=== PATIENT | male | born 1950 | race Caucasian/White ===

== ENCOUNTER 2017-05-20 19:09 | Inpatient (IN) ==
[2017-05-20] MEDS ORDERED: Ipratropium/Albuterol Neb 3 ML IH ONE (19:20)
[2017-05-20] MEDS ORDERED: methylPREDNISolone 125 MG/2 ML VIAL IVP ONE (19:21)
[2017-05-20 19:43] LABS: Basophils % 0.3 %; Eosinophils % 0.1 %; Hematocrit 46.2 % (37.5-50.1); Hemoglobin 14.7 g/dL (12.9-16.9); Immature Granulocytes % 0.5 % (0-4); Lymphocytes # 0.9 K/mcL (0.6-4.6); Lymphocytes % 8.4 %; Mean Corpuscular HGB Conc 31.8 g/dL (31.6-35.5); Mean Corpuscular Hemoglobin 27.1 pg (28.0-33.3); Mean Corpuscular Volume 85.2 fL (83.0-100.0); Mean Platelet Volume 9.3 fL (9.4-12.4); Monocytes # 0.7 K/mcL (0.0-1.3); Monocytes % 6.1 %; Neutrophils # 9.1 K/mcL (1.6-8.9); Platelet Count 216 K/mcL (140-400); Red Blood Count 5.42 M/mcL (4.19-5.50); Segmented Neutrophils % 84.6 %
[2017-05-20 19:58] LABS: Alanine Aminotransferase 10 Units/L (0-55); Albumin 3.1 g/dL (3.5-5.0); Albumin/Globulin Ratio 0.8 (1.1-2.2); Alkaline Phosphatase 75 Units/L (38-126); Aspartate Amino Transferase 13 Units/L (5-34); BUN/Creatinine Ratio 14 (6-26); Bilirubin,Direct 0.4 mg/dL (0.0-0.5); Bilirubin,Indirect 0.4 mg/dL (0.0-1.2); Bilirubin,Total 0.8 mg/dL (0.2-1.2); Blood Urea Nitrogen 14 mg/dL (8-26); Calcium 8.9 mg/dL (8.6-10.8); Carbon Dioxide 24 mEq/L (19-29); Chloride 106 mEq/L (98-109); Globulin 3.7 g/dL (2.4-3.5); Glucose 128 mg/dL (70-99); Magnesium 1.6 mg/dL (1.6-2.6); Osmolality,Calculated 292 (280-300); Phosphorous 2.4 mg/dL (2.3-4.7); Sodium 140 mEq/L (136-145); Total Protein 6.8 g/dL (6.0-8.3); eGFR For African Americans > 60 (> 60); eGFR For Non-African Americans > 60 (> 60)
[2017-05-20] MEDS ORDERED: Aspirin 325 MG TABLET PO ONE (20:10)
[2017-05-20 20:19] LABS: INR 1.1; Prothrombin Time 12.1 Seconds (9.4-12.1)
[2017-05-20 20:22] LABS: Activated Partial Thrombo Time 29.1 Seconds (26.0-36.0)
[2017-05-20 20:41] LABS: Bilirubin,Urine Small (Negative); Blood,Urine Trace (Negative); Clarity,Urine Clear (Clear); Color,Urine Dark Yellow (Yellow); Glucose,Urine (UA) Normal (Normal); Ketones,Urine Trace mg/dL (Negative); Leukocyte Esterase,Urine Negative (Negative); Nitrite,Urine Negative (Negative); PH,Urine 5.5 pH Units (5.0-8.0); Protein,Urine 30 mg/dL (Neg-Trace); Urobilinogen,Urine Normal (Normal)
[2017-05-20 20:42] LABS: Bacteria,Urine None Seen per hpf (None-Few); Hyaline Casts,Urine Few per lpf (None-Few); Squamous Epithelial Cell,Urine Many per lpf (None-Few)
[2017-05-20] MEDS ORDERED: Vancomycin 1,500 MG in D5% in Water 250 ML IVPB ONE (20:49)
[2017-05-20] MEDS ORDERED: Piperacillin/Tazobactam 3.375 GM in D5% in Water (Mini-Bag+) 100 ML IVPB ONE (20:49)
[2017-05-20] MEDS: 0.9 % Sodium Chloride 1,000 ML IVC SCH ×2 (21:06→23:09)
--- NOTE | 2017-05-20 21:20 | Emergency Department Note ---
Disposition Clinical Impression: Tachycardia, COPD exacerbation Fever Qualifiers: Fever type: unspecified Qualified Code(s): R50.9 - Fever, unspecified Sepsis Qualifiers: Sepsis type: sepsis due to unspecified organism Qualified Code(s): A41.9 - Sepsis, unspecified organism Dyspnea Qualifiers: Dyspnea type: unspecified Qualified Code(s): R06.00 - Dyspnea, unspecified Disposition: Admitted As Inpatient Condition: Fair Referrals: Cyrus Woo DO [Primary Care Provider] - Forms: ED Satisfaction Letter Time of Disposition: 21:25 SOB HPI - General Chief Complaint: ED Shortness of Breath/Dyspnea Stated Complaint: ERVIN, Fever, BLE swelling Time Seen by Provider: 05/20/17 19:18 Source: patient, family, EMS Mode of arrival: EMS Limitations: no limitations Nursing Notes Reviewed: Yes Vital Signs Reviewed: Yes - History of Present Illness Patient is a 67-year-old male with past medical history of COPD, hypertension, 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 He presents today via EMS due to fever, nausea, vomiting, diarrhea, hypoxia. Daughter is present and states that the patient has been feeling unwell for the past 24 hours. He was febrile at home up to 101 degrees. He has had increased cough as well. He had increased shortness of breath. Usually he wears 4 L nasal cannula oxygen and sats around 91-92%. However, upon arrival, EMS states that the patient was satting in the low 80s. They put him on a nonrebreather mask and he was brought up to 96%. Patient has increased work of breathing on presentation. He denies any chest pain, admits to shortness of breath. Also admits to nausea, vomiting, fevers, diarrhea. Denies any abdominal pain. - Related Data Previous Rx's Medication Instructions Recorded HYDROcodone/Acet 10/325 mg [[place] 1 tab PO Q6HR PRN #10 tab 03/25/16 10-325 mg] Sulfamethoxazole/Trimeth DS 1 each PO BID #20 tablet 04/23/16 [Bactrim DS] cephALEXin [Keflex] 500 mg PO QID #40 capsule 04/23/16 Allergies Allergy/AdvReac Type Severity Reaction Status Date / Time gabapentin Allergy Hives Verified 05/22/16 00:36 All systems ED: reviewed and negative except as stated. Constitutional: Reports: fever Cardiovascular: Denies: chest pain Respiratory: Reports: cough, dyspnea Gastrointestinal: Reports: nausea, vomiting, diarrhea. Denies: abdominal pain Past Medical History - Past Medical History Attestation: Yes The following information was validated with the patient. Source: patient Medical history: Reports: COPD, CVA, hyperlipidemia, hypertension, other Psychiatric history: Reports: anxiety, depression, PTSD - Social History Smoking Status: Former smoker Smokeless Tobacco Status: No Alcohol use: Reports: none Drug use: Reports: none Physical Exam - General Limitations: no limitations General appearance: alert, in distress (Pndh-je-qlctkjrd respiratory) - Head Head exam: atraumatic, normocephalic, normal inspection - Eye Eye exam: Present: normal appearance, PERRL, EOMI - ENT ENT exam: normal exam, normal oropharynx, mucous membranes moist - Neck Neck exam: Present: normal inspection, full ROM, trachea midline - Chest Chest inspection: Present: normal inspection, symmetric chest wall rise - Respiratory Respiratory exam: Present: respiratory distress ([id number]-[id number], on nonrebreather mask, using accessory muscles for work of breathing.), other ( Decreased aeration throughout, no overt wheezes) - Cardiovascular Cardiovascular exam: Present: normal rhythm, tachycardia, normal heart sounds - Abdominal Exam Abdominal exam: Present: soft, Non-Tender. Absent: tenderness, distention, guarding, rebound, rigidity - Extremities Exam Extremities exam: Present: pedal edema (Chronic bilateral lower extremity edema , chronic left lower extremity venous stasis dermatitis) - Neurological Exam Neurological exam: Present: alert, oriented X3 - Psychiatric Psychiatric exam: Present: normal affect, normal mood - Skin Skin exam: Present: warm, dry, intact, normal color Course Course Narrative: Patient was tachycardic in the 120s, febrile on presentation. Satting 96% on nonrebreather. Patient was given duonebs and Solu-Medrol. EKG shows sinus tachycardia with no acute ST changes. White blood cell count around 10 with a left shift. No major electrolyte abnormalities. Elevated troponin 0.09. Aspirin given. UA negative. Chest x-ray negative for any acute cardiopulmonary process. Patient met SIRS/sepsis criteria. He was given 30 mL/ kg bolus of fluids, placed on empiric drink and Zosyn. Blood cultures have been drawn. Patient will be admitted for fever of unknown source, sepsis, elevated troponin level. No current chest pain on exam. Chest X-Ray 05/20/17 19:20 IMPRESSION: Shallow inspiration. No acute process. D/ / Bro Montalvo MD / Bro Montalvo MD Interpreting Provider: Bro Montalvo MD Vital Signs Temperature 102.4 F H 05/20/17 19:11 Pulse Rate 120 05/20/17 19:11 Respiratory Rate 18 05/20/17 19:11 Blood Pressure 135/90 05/20/17 19:11 O2 Sat by Pulse Oximetry 97 05/20/17 19:11 Temperature 102.4 F H 05/20/17 19:11 Pulse Rate 120 05/20/17 19:11 Respiratory Rate 18 05/20/17 19:11 Blood Pressure 135/90 05/20/17 19:11 O2 Sat by Pulse Oximetry 97 05/20/17 19:11 Oxygen Delivery Oxygen Delivery Non Rebreather Mask Shortness of Breath/Dyspnea - [facility] Narrative Medical decision making narrative: Patient was tachycardic in the 120s, febrile on presentation. Tylenol given for fever. Satting 96% on nonrebreather. Patient was given duonebs and Solu- Medrol. EKG shows sinus tachycardia with no acute ST changes. White blood cell count around 10 with a left shift. No major electrolyte abnormalities. Elevated troponin 0.09. Aspirin given. UA negative. Chest x-ray negative for any acute cardiopulmonary process. Patient met SIRS/sepsis criteria. He was given 30 mL/kg bolus of fluids, placed on empiric drink and Zosyn. Blood cultures have been drawn. Patient will be admitted for fever of unknown source , sepsis, elevated troponin level. No current chest pain on exam. - Medical Records Medical records reviewed: Yes I reviewed the patient's medical records. - Lab Data Lab results reviewed: Yes I reviewed the patient's lab results. Result diagrams: 05/20/17 19:20 05/20/17 19:20 Lab Results 05/20/17 05/20/17 05/20/17 Range/Units 19:20 19:20 19:20 WBC 10.8 (4.3-11.1) K/mcL RBC 5.42 (4.19-5.50) M/mcL Hgb 14.7 (12.9-16.9) g/dL Hct 46.2 (37.5-50.1) % MCV 85.2 (83.0-100.0) fL MCH 27.1 L (28.0-33.3) pg MCHC 31.8 (31.6-35.5) g/dL RDW 14.0 (11.5-14.5) % Plt Count 216 (140-400) K/mcL MPV 9.3 L (9.4-12.4) fL Immature Gran % 0.5 (0-4) % Seg Neutrophils % 84.6 % Lymphocytes % 8.4 % Monocytes % 6.1 % Eosinophils % 0.1 % Basophils % 0.3 % Neutrophils # 9.1 H (1.6-8.9) K/mcL Lymphocytes # 0.9 (0.6-4.6) K/mcL Monocytes # 0.7 (0.0-1.3) K/mcL Eosinophils # 0.0 (0.0-0.6) K/mcL Basophils # 0.0 (0.0-0.2) K/mcL PT 12.1 (9.4-12.1) Seconds INR 1.1 APTT 29.1 (26.0-36.0) Seconds Sodium 140 (136-145) mEq/L Potassium 4.0 (3.5-4.5) mEq/L Chloride 106 (98-109) mEq/L Carbon Dioxide 24 (19-29) mEq/L BUN 14 (8-26) mg/dL Creatinine 1.02 (0.72-1.25) mg/dL Est GFR ( Amer) > 60 (> 60) Est GFR (Non-Af Amer) > 60 (> 60) BUN/Creatinine Ratio 14 (6-26) Glucose 128 H (70-99) mg/dL Calculated Osmolality 292 (280-300) Lactic Acid (0.5-2.2) mmol/L Calcium 8.9 (8.6-10.8) mg/dL Phosphorus 2.4 (2.3-4.7) mg/dL Magnesium 1.6 (1.6-2.6) mg/dL Total Bilirubin 0.8 (0.2-1.2) mg/dL Direct Bilirubin 0.4 (0.0-0.5) mg/dL Indirect Bilirubin 0.4 (0.0-1.2) mg/dL AST 13 (5-34) Units/L ALT 10 (0-55) Units/L Alkaline Phosphatase 75 (38-126) Units/L Troponin I (0-0.03) ng/mL Serum Total Protein 6.8 (6.0-8.3) g/dL Albumin 3.1 L (3.5-5.0) g/dL Globulin 3.7 H (2.4-3.5) g/dL Albumin/Globulin Ratio 0.8 L (1.1-2.2) Urine Color (Yellow) Urine Clarity (Clear) Urine pH (5.0-8.0) pH Units Ur Specific [place] (1.010-1.025) Urine Protein (Neg-Trace) mg/dL Urine Glucose (UA) (Normal) mg/dL Urine Ketones (Negative) mg/dL Urine Blood (Negative) Urine Nitrite (Negative) Urine Bilirubin (Negative) Urine Urobilinogen (Normal) mg/dL Ur Leukocyte Esterase (Negative) Urine Microscopic RBC (0-3) per hpf Urine Microscopic WBC (0-3) per hpf Ur Squamous Epith Cells (None-Few) per lpf Urine Bacteria (None-Few) per hpf Hyaline Casts (None-Few) per lpf Ur Culture Indicated? (NO) 05/20/17 05/20/17 05/20/17 Range/Units 19:20 19:20 20:30 WBC (4.3-11.1) K/mcL RBC (4.19-5.50) M/mcL Hgb (12.9-16.9) g/dL Hct (37.5-50.1) % MCV (83.0-100.0) fL MCH (28.0-33.3) pg MCHC (31.6-35.5) g/dL RDW (11.5-14.5) % Plt Count (140-400) K/mcL MPV (9.4-12.4) fL Immature Gran % (0-4) % Seg Neutrophils % % Lymphocytes % % Monocytes % % Eosinophils % % Basophils % % Neutrophils # (1.6-8.9) K/mcL Lymphocytes # (0.6-4.6) K/mcL Monocytes # (0.0-1.3) K/mcL Eosinophils # (0.0-0.6) K/mcL Basophils # (0.0-0.2) K/mcL PT (9.4-12.1) Seconds INR APTT (26.0-36.0) Seconds Sodium (136-145) mEq/L Potassium (3.5-4.5) mEq/L Chloride (98-109) mEq/L Carbon Dioxide (19-29) mEq/L BUN (8-26) mg/dL Creatinine (0.72-1.25) mg/dL Est GFR ( Amer) (> 60) Est GFR (Non-Af Amer) (> 60) BUN/Creatinine Ratio (6-26) Glucose (70-99) mg/dL Calculated Osmolality (280-300) Lactic Acid 1.3 (0.5-2.2) mmol/L Calcium (8.6-10.8) mg/dL Phosphorus (2.3-4.7) mg/dL Magnesium (1.6-2.6) mg/dL Total Bilirubin (0.2-1.2) mg/dL Direct Bilirubin (0.0-0.5) mg/dL Indirect Bilirubin (0.0-1.2) mg/dL AST (5-34) Units/L ALT (0-55) Units/L Alkaline Phosphatase (38-126) Units/L Troponin I 0.09 H* (0-0.03) ng/mL Serum Total Protein (6.0-8.3) g/dL Albumin (3.5-5.0) g/dL Globulin (2.4-3.5) g/dL Albumin/Globulin Ratio (1.1-2.2) Urine Color Dark Yellow (Yellow) Urine Clarity Clear (Clear) Urine pH 5.5 (5.0-8.0) pH Units Ur Specific [place] 1.030 H (1.010-1.025) Urine Protein 30 H (Neg-Trace) mg/dL Urine Glucose (UA) Normal (Normal) mg/dL Urine Ketones Trace H (Negative) mg/dL Urine Blood Trace H (Negative) Urine Nitrite Negative (Negative) Urine Bilirubin Small H (Negative) Urine Urobilinogen Normal (Normal) mg/dL Ur Leukocyte Esterase Negative (Negative) Urine Microscopic RBC 3-5 H (0-3) per hpf Urine Microscopic WBC 3-5 H (0-3) per hpf Ur Squamous Epith Cells Many H (None-Few) per lpf Urine Bacteria None Seen (None-Few) per hpf Hyaline Casts Few (None-Few) per lpf Ur Culture Indicated? NO (NO) - Radiology Data Radiology results reviewed: Yes I reviewed the patient's radiology results. Chest X-Ray 05/20/17 19:20 IMPRESSION: Shallow inspiration. No acute process. D/ / Bro Montalvo MD / Bro Montalvo MD Interpreting Provider: Bro Montalvo MD - EKG Data EKG attestation: Yes I reviewed and interpreted this EKG. EKG results narrative: 05/20/2017 and 19:16. Sinus tachycardia. Rate 126. AK 148. QRS 82. QTC 396. No acute ST elevation or depression. Normal axis. S.B.A.R. - S.B.A.R. Situation: Demographics, MOA Background: Presenting Complaint, Relevant PMH, Meds, & Allergies Assessment: Vital Signs, Course and respsone to treatment, Exam Concerns, Patient/Family Expectation, Pertinant Lab Results Recommendation: Barrier(s) to disposition, Recommendation based on pending studies, treatments, or consults S.B.A.R. Report Given to: Dr. Ab ArmentaBWalter Repor Time: 21:26 Attestation Statement - Attestation Attestation: I, Irving Madrid MD, personally evaluated this patient and discussed their management with the resident physician. I reviewed the resident's note and agree with the documented findings, medical decision making, and plan of care. 67-year-old male presents to the emergency department by ambulance with a complaint of fever up to 101 all day today. He is had some nausea vomiting and diarrhea. No abdominal pain. Some nonproductive cough. No chest pain. He has had increased shortness of breath. He has a history of COPD and is on home oxygen at 4 L/m continuously. He reports that his oxygen saturation normally runs around 90-92% on his oxygen. When EMS arrived he was apparently in the low 80s and was placed on a nonrebreather. On arrival here he has a temperature of 102.4 axillary. He denies any chest pain. On examination patient is a well-developed well-nourished elderly male in no acute distress. He is alert and oriented 3. There is no cyanosis or diaphoresis. Left-sided weakness secondary to prior CVA 8 years ago. Chest is nontender to palpation. Breath sounds are decreased bilaterally but seem more decreased in the left base. There are a few scattered wheezes. Heart is regular with a moderate tachycardia. Occasional ectopy. Abdomen soft and nontender with normal bowel sounds. 2+ pitting edema of the lower extremities with some chronic-appearing stasis dermatitis of the left lower extremity. Labs reviewed. Elevated troponin noted. EKG shows a sinus tachycardia with frequent PVCs, heart rate 126. Chest x-ray negative. The hospitalist, Dr. Berger, was consulted and accepted admission of the patient.
[2017-05-20] MEDS ORDERED: Naloxone 0.4 MG/ML INJ IVP PRN (21:26)
[2017-05-20 22:02] LABS: ABG Base Excess 2.3 mEq/L (-2.0 to 3.0); ABG HCO3 26.5 mEQ/L (21-27); ABG Oxygen Saturation 97 % (95-98); ABG PCO2 39 mmHg (35-45); ABG PH 7.44 pH Units (7.32-7.45); ABG PO2 83 mmHg (85-104); ABG TCO2 27.7 mEq/L (20-26)
[2017-05-20 22:04] LABS: Blood Gas FiO2 100 %
--- NOTE | 2017-05-20 23:02 | Internal Med History&Physical ---
Date of Encounter: 05/21/17 Time of Encounter: 22:58 Assessment and Plan (1) Dyspnea Current visit: Yes Status: Acute possible COPD exacerbation, he has baseline stage 3 COPD. he received 125 mg of methylpred at ED. on my exam he has no wheezing but is hypoxic. CXR shows no signs of pneumonia, he does have fever but no chest pain, cough or leucocytosis. given h/o stroke with left sided weakness and limited mobility in this patien. will order CT chest with contrast to r/o PE. will coninue to treat for COPD exacrebation, conitnue o2 to maintain sats >88% Qualifiers: Dyspnea type: unspecified Qualified Code(s): R06.00 - Dyspnea, unspecified (2) COPD exacerbation Current visit: Yes Status: Acute currently no wheezing on exam.will continue methylpred 40mg IV q8hr for now, can taper as clincally able. not on oral steroids at home. continue nebs prn. (3) Elevated troponin Current visit: Yes Status: Acute possible demand ischemia 2/2 hypoxia. denies chest pain and EKG with no ischemic changes will trend it, less likely ACS. (4) Fever Current visit: Yes Status: Acute unclear etiology CXR with no pnuemonia, ua appears to be normal abdomen exam is benign. will do CT chest with contrast to r/o PE. blood cx has been sent, RIP ordered, was given a dose of vanco and zosyn at ED. no clear source for now, however given tachycardia and hypoxic, will continue IV zosyn, no clear indication for vanco , so will dc. antibiotics to be de- escalated once able. has a rash in groin which he says is chronic and has a pressure sore on the left buttocks, will consult wound care. Qualifiers: Fever type: unspecified Qualified Code(s): R50.9 - Fever, unspecified Internal Medicine - H&P: HPI Chief complaint: sob Admitted From: Home Plans for Post Hospital Care: Home History of present illness: Mr. 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 he is normally at 4l of o2 via NC, as per the daughter he is always sob, however for 1 day he has been increasilngly sob. he denies any chest pain, started having fever since this morning, denies cough or chest pain to me. as per the , he had one episode of vomting and diarrhea this mornning, but no abdominal pain. on presentation he has sating at 80s , so they placed him on NRB. at the time of my evaluation, he is alert and awake and is orientedx3. Past Med Surg Social Fam HX - Past Medical History Medical history: COPD, CVA, hyperlipidemia, hypertension, other Psychiatric history: anxiety, depression, PTSD - Social History Smoking Status: Former smoker Smokeless Tobacco Status: No Alcohol use: none Drug use: none Internal Medicine - H&P: Meds HYDROcodone/Acet 10/325 mg [[place] 10-325 mg] 1 tab PO Q6HR PRN #10 tab 03/25/16 [Rx] Sulfamethoxazole/Trimeth DS [Bactrim DS] 1 each PO BID #20 tablet 04/23/16 [Rx] cephALEXin [Keflex] 500 mg PO QID #40 capsule 04/23/16 [Rx] Allergies gabapentin Allergy (Verified 05/22/16 00:36) Hives All Systems PM: A 10-system review of systems was performed and is negative for pertinent findings except as documented above in the HPI. - Constitutional Constitutional: no chills, no fever(s), no night sweats - EENT Eyes: no change in vision, no discharge, no pain, no photophobia Ears: no ear discharge, no ear pain, no tinnitus Nose, mouth and throat: no dysphagia, no nasal discharge, no neck pain, no sore throat - Cardiovascular Cardiovascular ROS IM: no chest pain, no diaphoresis, no dyspnea, no lightheadedness, no palpitations, no syncope - Respiratory Respiratory: no cough, no dyspnea, no wheezing, no excessive phlegm production - Gastrointestinal Gastrointestinal: no abdominal pain, no diarrhea, no hematemesis, no hematochezia, no melena, no nausea, no vomiting - Musculoskeletal Musculoskeletal ROS IM: no numbness, no tingling - Integumentary Integumentary IM: no rash, no unusual bruising - Neurological Neurological ROS: no confusion, no convulsions, no focal weakness, no numbness, no tingling, no tremor(s) - Constitutional Vitals: Temp Pulse Resp BP Pulse Ox 0 F L 115 0 0/0 96 05/20/17 21:58 05/20/17 21:42 05/20/17 21:58 05/20/17 21:58 05/20/17 21:42 General appearance: Present: mild distress, A&O X 3 Exam: neck- supple chest- b/l clear, decreased breath sounds at the bases, no wheezing cvs-s1 and s2, no mr//g abd-soft, non tender, bs are present ext- mild b/l leg edema, chronic skin changes in the left leg. neuro- motor weakness left upper arm and left leg, no new focal deficits. skin- rash b/l in between thighs, Internal Med - H&P Results - Labs CBC & Chem 7: 05/20/17 19:20 05/20/17 19:20 - ABG Interpretation ABG results: 05/20/17 21:54 ABG pH 7.44 ABG pCO2 39 ABG pO2 83 L ABG HCO3 26.5 ABG Total CO2 27.7 H ABG O2 Saturation 97 ABG Base Excess 2.3
[2017-05-20] MEDS: *HR* Heparin 5,000 UNIT/ML VIAL SQ SCH (23:09)
[2017-05-21] MEDS ORDERED: Ipratropium/Albuterol Neb 3 ML IH PRN (01:38)
[2017-05-21 02:25] LABS: BUN/Creatinine Ratio 14 (6-26); Blood Urea Nitrogen 15 mg/dL (8-26); Calcium 8.4 mg/dL (8.6-10.8); Carbon Dioxide 22 mEq/L (19-29); Chloride 108 mEq/L (98-109); Chol/HDL Ratio 2.4 (0-4.9); Cholesterol 124 mg/dL (< 200); Glucose 191 mg/dL (70-99); HDL Cholesterol 52 mg/dL (40-59); LDL Cholesterol,Calculated 60 mg/dL (0-99); Magnesium 1.7 mg/dL (1.6-2.6); Osmolality,Calculated 292 (280-300); Phosphorous 2.5 mg/dL (2.3-4.7); Potassium 4.1 mEq/L (3.5-4.5); Sodium 138 mEq/L (136-145); Triglycerides 61 mg/dL (< 150); eGFR For African Americans > 60 (> 60); eGFR For Non-African Americans > 60 (> 60)
[2017-05-21 02:47] LABS: Basophils % 0.2 %; Hematocrit 47.9 % (37.5-50.1); Hemoglobin 14.5 g/dL (12.9-16.9); Immature Granulocytes % 0.5 % (0-4); Lymphocytes # 0.5 K/mcL (0.6-4.6); Lymphocytes % 5.2 %; Mean Corpuscular HGB Conc 30.3 g/dL (31.6-35.5); Mean Corpuscular Hemoglobin 26.7 pg (28.0-33.3); Mean Corpuscular Volume 88.2 fL (83.0-100.0); Mean Platelet Volume 9.6 fL (9.4-12.4); Monocytes # 0.1 K/mcL (0.0-1.3); Monocytes % 0.9 %; Neutrophils # 8.2 K/mcL (1.6-8.9); Platelet Count 207 K/mcL (140-400); Red Blood Count 5.43 M/mcL (4.19-5.50); Segmented Neutrophils % 93.2 %
[2017-05-21] MEDS: *HR* Heparin 5,000 UNIT/ML VIAL SQ SCH ×2 (05:49→18:53)
[2017-05-21] MEDS: Budesonide/Formoterol 80/4.5 MDI IH SCH ×3 (06:17→20:37)
[2017-05-21] MEDS ORDERED: Piperacillin/Tazobactam 3.375 GM in D5% in Water (Mini-Bag+) 100 ML IVPB SCH (08:00)
[2017-05-21] MEDS: Nystatin POWDER 30 GM BOTTLE TP SCH ×2 (08:09→22:54)
[2017-05-21] MEDS: Aspirin 81 MG TAB.CHEW PO SCH (08:09)
[2017-05-21] MEDS: Furosemide 40 MG/4 ML VIAL IVP SCH ×2 (08:10→18:53)
[2017-05-21] MEDS: Levofloxacin 500 MG/100 ML 500 MG/100 ML BAG IVPB SCH (08:10)
[2017-05-21] MEDS: MethylPREDNISolone 40 MG/ML VIAL IVP SCH ×2 (08:11→18:53)
[2017-05-21] MEDS ORDERED: Furosemide 40 MG/4 ML VIAL IVP SCH (09:00)
--- NOTE | 2017-05-21 10:23 | Internal Med Progress Note ---
Date of Encounter: 05/21/17 Time of Encounter: 08:15 - Assessment and plan (1) COPD exacerbation Current Visit: Yes Status: Acute Assessment and plan: Continue treatment for acute COPD exacerbation. Continue O2 supplementation and wean FiO2 as tolerated. On IV steroids, levofloxacin and Zosyn as patient had fever on presentation. No pneumonia on CT of the chest. But patient did have bilateral groundglass opacities which are probably chronic in nature. High -risk for complications including respiratory failure. On DVT prophylaxis with subcutaneous heparin (2) Elevated troponin Current Visit: Yes Status: Acute Assessment and plan: Trending down. Most likely from demand ischemia and hypoxia. We will get 2-D echocardiogram to evaluate heart function. (3) Fever Current Visit: Yes Status: Acute Assessment and plan: No new episodes of fever. Could be related to COPD exacerbation/bronchitis. On IV antibiotics. Cultures are so far negative. Qualifiers: Fever type: unspecified Qualified Code(s): R50.9 - Fever, unspecified - Subjective Interval history: Patient continues to have significant respiratory difficulty. Currently on nasal cannula at 11 L/m. Denies any chest pain. Continues to have bilateral wheezing. No fever or chills reported overnight. - Constitutional Vitals: Temp Pulse Resp BP Pulse Ox 97.5 F L 861 6 128/85 93 05/21/17 06:59 05/21/17 06:59 05/21/17 06:59 05/21/17 06:59 05/21/17 06:59 General appearance: Present: mild distress, A&O X 3, obese, answers questions appropriately - Neck Neck exam general surgery: Present: supple, trachea midline. Absent: lymphadenopathy - Respiratory Respiratory exam: Present: prolonged expiratory phase, wheezes, tachypnea. Absent: rales, rhonchi - Cardiovascular Cardiovascular exam: Present: RRR, +S1, +S2. Absent: diastolic murmur, gallop, rubs, systolic murmur - GI/Abdominal GI/Abdominal exam: Present: normal bowel sounds, soft, no peritoneal signs. Absent: distended, tenderness - Extremities Exam Extremities exam: Present: warm, radial pulses palpable and symetrical. Absent : calf tenderness, cyanotic, pedal edema - Neurological Exam Neurological exam: Present: alert, oriented X3, no focal deficits, strengths equal and symetr throughout. Absent: facial droop, speech deficit - Skin Skin exam: Present: dry, intact Internal Medicine: Result - Labs CBC & Chem 7: 05/21/17 01:59 05/21/17 01:59 Labs: Short CBC 05/21/17 Range/Units 01:59 WBC 8.8 (4.3-11.1) K/mcL Hgb 14.5 (12.9-16.9) g/dL Hct 47.9 (37.5-50.1) % Plt Count 207 (140-400) K/mcL Neutrophils # 8.2 (1.6-8.9) K/mcL BMP 05/21/17 01:59 Sodium 138 Potassium 4.1 Chloride 108 Carbon Dioxide 22 BUN 15 Creatinine 1.04 Glucose 191 H Calcium 8.4 L Cardiac Enzymes 05/21/17 05/21/17 Range/Units 01:59 07:53 Troponin I 0.08 H* 0.05 H* (0-0.03) ng/mL - ABG Interpretation ABG results: ABG ABG pH 7.44 pH Units (7.32-7.45) 05/20/17 21:54 ABG pCO2 39 mmHg (35-45) 05/20/17 21:54 ABG pO2 83 mmHg (85-104) L 05/20/17 21:54 ABG O2 Saturation 97 % (95-98) 05/20/17 21:54 PT/INR, D-dimer PT 12.1 Seconds (9.4-12.1) 05/20/17 19:20 - Impressions Impressions Chest CTA 05/21/17 00:20 IMPRESSION: Essentially nondiagnostic pulmonary angiogram. Nonspecific bilateral ground-glass opacity. Differential considerations include pulmonary edema and atypical pneumonia. No significant pleural effusion. D/ / Simon Larson MD / Simon Larson MD Interpreting Provider: Simon Larson MD Consult Discharge Plan - Plan Referrals: Cyrus Woo DO [Primary Care Provider] -
[2017-05-21] MEDS ORDERED: Lidocaine Jelly 11 ml Syringe TP ONE (12:05)
--- NOTE | 2017-05-21 15:04 | Electrocardiograph Report ---
[place] [id number] Test Date: 2017-05-20 Pat Name: Yuval Goins Department: 103 Room: 2N8 Gender: M Television Repairer: JONATHAN : 1950 Requested By: Gerardo Acosta Order Number: [id number] Reading MD: Martin Almonte MD Measurements Intervals [place] Rate: 126 P: 29 ID: [id number] QRS: 37 QRSD: 82 T: 30 QT: 322 QTc: 396 Interpretive Statements SINUS TACHYCARDIA WITH FREQUENT VENTRICULAR PREMATURE COMPLEXES BASELINE ARTIFACT Electronically Signed On 05-21-2017 15:02:36 EDT by Martin Almonte MD
[2017-05-22] MEDS: MethylPREDNISolone 40 MG/ML VIAL IVP SCH ×2 (00:03→08:10)
[2017-05-22] MEDS: *HR* Heparin 5,000 UNIT/ML VIAL SQ SCH ×2 (06:34→17:32)
[2017-05-22] MEDS: Levofloxacin 500 MG/100 ML 500 MG/100 ML BAG IVPB SCH (06:49)
[2017-05-22] MEDS ORDERED: cloNIDine HCl 0.1 MG TABLET PO PRN ×3 (08:01→09:00)
[2017-05-22] MEDS: Furosemide 40 MG/4 ML VIAL IVP SCH (08:08)
[2017-05-22] MEDS: Aspirin 81 MG TAB.CHEW PO SCH (08:10)
[2017-05-22] MEDS: Nystatin POWDER 30 GM BOTTLE TP SCH ×2 (08:11→20:11)
[2017-05-22] MEDS: Furosemide 40 MG TABLET PO SCH ×2 (08:13→20:10)
[2017-05-22] MEDS: *HR* HYDROcodone/Acet 5/325 mg TABLET PO SCH ×3 (08:16→20:10)
[2017-05-22] MEDS: Pregabalin 50 MG CAPSULE PO SCH ×3 (08:17→20:10)
[2017-05-22] MEDS ORDERED: Furosemide 40 MG TABLET PO SCH (09:00)
[2017-05-22] MEDS ORDERED: Albuterol 2.5 MG/3 ML NEBULIZER IH PRN (11:35)
[2017-05-22] MEDS: Ipratropium/Albuterol Neb 3 ML IH SCH ×4 (11:50→22:02)
[2017-05-22] MEDS: Budesonide/Formoterol 80/4.5 MDI IH SCH ×2 (11:50→19:57)
[2017-05-22] MEDS: predniSONE 20 MG TABLET PO SCH (14:28)
--- NOTE | 2017-05-22 15:13 | Internal Med Progress Note ---
Date of Encounter: 05/22/17 Time of Encounter: 15:11 - Assessment and plan (1) COPD exacerbation Current Visit: Yes Status: Acute Assessment and plan: Clinically patient is feeling much better. Was still on 10 L high flow nasal cannula with O2 supplementation this morning. We will attempt to wean down FiO2 as much as possible today. Titrate to keep sats greater than 88%. Wean steroids. Continue bronchodilators. Moderate risk for complications (2) Fever Current Visit: Yes Status: Resolved Assessment and plan: No longer having fever. Cultures have been negative. Receiving Levaquin for COPD exacerbation/bronchitis. Qualifiers: Fever type: unspecified Qualified Code(s): R50.9 - Fever, unspecified - Subjective Interval history: Patient continues to improve significantly but is still requiring high amounts of O2 supplementation. Denies any chest pain. No dizziness or lightheadedness. No palpitations. No nausea or vomiting. - Constitutional Vitals: Temp Pulse Resp BP Pulse Ox 98.1 F 92 18 175/117 98 05/22/17 11:42 05/22/17 11:42 05/22/17 11:52 05/22/17 11:42 05/22/17 11:52 General appearance: Present: cooperative, mild distress, A&O X 3, obese, answers questions appropriately - Neck Neck exam general surgery: Present: supple, trachea midline. Absent: lymphadenopathy - Respiratory Respiratory exam: Present: CTAB. Absent: accessory muscle use, rales, rhonchi, wheezes - Cardiovascular Cardiovascular exam: Present: RRR, +S1, +S2. Absent: diastolic murmur, gallop, rubs, systolic murmur - GI/Abdominal GI/Abdominal exam: Present: normal bowel sounds, soft, no peritoneal signs. Absent: distended, tenderness - Extremities Exam Extremities exam: Present: warm, radial pulses palpable and symetrical. Absent : calf tenderness, cyanotic, pedal edema - Neurological Exam Neurological exam: Present: alert, oriented X3, no focal deficits. Absent: facial droop, speech deficit - Skin Skin exam: Present: dry, intact Internal Medicine: Result - Labs CBC & Chem 7: 05/21/17 01:59 05/21/17 01:59 - ABG Interpretation ABG results: ABG ABG pH 7.44 pH Units (7.32-7.45) 05/20/17 21:54 ABG pCO2 39 mmHg (35-45) 05/20/17 21:54 ABG pO2 83 mmHg (85-104) L 05/20/17 21:54 ABG O2 Saturation 97 % (95-98) 05/20/17 21:54 PT/INR, D-dimer PT 12.1 Seconds (9.4-12.1) 05/20/17 19:20 Consult Discharge Plan - Plan Referrals: Cyrus Woo DO [Primary Care Provider] - 07/10/17 2:45 pm
[2017-05-22] MEDS: traZODone 50 MG TABLET PO SCH (20:11)
[2017-05-23] MEDS: Ipratropium/Albuterol Neb 3 ML IH SCH ×6 (04:20→23:52)
[2017-05-23] MEDS: *HR* Heparin 5,000 UNIT/ML VIAL SQ SCH ×2 (04:30→17:34)
[2017-05-23] MEDS: Levofloxacin 500 MG/100 ML 500 MG/100 ML BAG IVPB SCH (04:31)
[2017-05-23] MEDS: Budesonide/Formoterol 80/4.5 MDI IH SCH ×2 (07:52→19:55)
[2017-05-23] MEDS: predniSONE 20 MG TABLET PO SCH (08:26)
[2017-05-23] MEDS: Aspirin 81 MG TAB.CHEW PO SCH (08:26)
[2017-05-23] MEDS: Pregabalin 50 MG CAPSULE PO SCH ×3 (08:26→21:45)
[2017-05-23] MEDS: Furosemide 40 MG TABLET PO SCH ×2 (08:26→17:33)
[2017-05-23] MEDS: Nystatin POWDER 30 GM BOTTLE TP SCH ×2 (08:27→21:46)
[2017-05-23] MEDS: *HR* HYDROcodone/Acet 5/325 mg TABLET PO SCH ×3 (08:27→21:44)
[2017-05-23 12:19] LABS: ABG Base Excess 7.9 mEq/L (-2.0 to 3.0); ABG HCO3 34.4 mEQ/L (21-27); ABG Oxygen Saturation 88 % (95-98); ABG PCO2 53 mmHg (35-45); ABG PH 7.42 pH Units (7.32-7.45); ABG PO2 53 mmHg (85-104)
[2017-05-23 12:23] LABS: Blood Gas FiO2 36 %; Blood Gas Liter Flow 4 L/MIN
--- NOTE | 2017-05-23 14:43 | Internal Med Progress Note ---
Date of Encounter: 05/23/17 Time of Encounter: 09:35 - Assessment and plan (1) COPD exacerbation Current Visit: Yes Status: Acute Assessment and plan: Continue treatment with bronchodilators, levofloxacin and prednisone. Continue to wean FiO2 as tolerated. ABG done here shows a PCO2 of 53, PO2 of 53 and pH of 7.42 while the patient is on 4 L nasal cannula. We will evaluate for home BiPAP use tonight. Moderate risk for complications. (2) Essential hypertension Current Visit: Yes Status: Chronic Assessment and plan: Blood pressure is well controlled. Continue lisinopril - Subjective Interval history: Patient had an episode of desaturation overnight and required to be placed on nonrebreather mask. He has since improved and is currently on 5 L nasal cannula. Feels better overall this morning. Denies any chest pain. His has been able to sit up in his chair for a while. - Constitutional Vitals: Temp Pulse Resp BP Pulse Ox 97.5 F L 87 18 129/84 99 05/23/17 11:02 05/23/17 11:02 05/23/17 11:28 05/23/17 11:02 05/23/17 11:28 General appearance: Present: cooperative, mild distress, A&O X 3, obese, answers questions appropriately - Eye Eye exam: Present: EOMI, PERRL, conjuntiva pink, sclera anicteric - Neck Neck exam general surgery: Present: supple, trachea midline. Absent: lymphadenopathy - Respiratory Respiratory exam: Present: prolonged expiratory phase, wheezes. Absent: accessory muscle use, rales, rhonchi - Cardiovascular Cardiovascular exam: Present: RRR, +S1, +S2. Absent: diastolic murmur, gallop, rubs, systolic murmur - GI/Abdominal GI/Abdominal exam: Present: normal bowel sounds, soft, no peritoneal signs. Absent: distended, tenderness - Skin Skin exam: Present: dry, intact Internal Medicine: Result - Labs CBC & Chem 7: 05/21/17 01:59 05/21/17 01:59 - ABG Interpretation ABG results: ABG ABG pH 7.42 pH Units (7.32-7.45) 05/23/17 12:12 ABG pCO2 53 mmHg (35-45) H 05/23/17 12:12 ABG pO2 53 mmHg (85-104) L 05/23/17 12:12 ABG O2 Saturation 88 % (95-98) L 05/23/17 12:12 PT/INR, D-dimer PT 12.1 Seconds (9.4-12.1) 05/20/17 19:20 - Impressions Impressions Chest X-Ray 05/22/17 21:50 IMPRESSION: Stable bibasilar opacities which may reflect mild pneumonia or partial atelectasis. D/ : / 05/22/2017 22:58:42 Rangel Sumner MD / Laury Mcguire Interpreting Provider: Rangel Sumner MD Consult Discharge Plan - Plan Referrals: Cyrus Woo DO [Primary Care Provider] - 07/10/17 2:45 pm
[2017-05-23] MEDS: traZODone 50 MG TABLET PO SCH (21:44)
[2017-05-24] MEDS: Ipratropium/Albuterol Neb 3 ML IH SCH ×6 (04:03→23:09)
[2017-05-24] MEDS: *HR* Heparin 5,000 UNIT/ML VIAL SQ SCH ×2 (05:45→16:49)
[2017-05-24] MEDS: levoFLOXacin 500 MG TABLET PO SCH (09:48)
[2017-05-24] MEDS: *HR* HYDROcodone/Acet 5/325 mg TABLET PO SCH ×2 (09:48→16:49)
[2017-05-24] MEDS: Pregabalin 50 MG CAPSULE PO SCH ×2 (09:48→16:49)
[2017-05-24] MEDS: Aspirin 81 MG TAB.CHEW PO SCH (09:48)
[2017-05-24] MEDS: predniSONE 20 MG TABLET PO SCH (09:48)
[2017-05-24] MEDS: Furosemide 40 MG TABLET PO SCH ×2 (09:48→16:49)
[2017-05-24] MEDS: Nystatin POWDER 30 GM BOTTLE TP SCH ×2 (09:49→20:28)
[2017-05-24] MEDS: Budesonide/Formoterol 80/4.5 MDI IH SCH ×2 (11:30→19:48)
--- NOTE | 2017-05-24 14:55 | Internal Med Progress Note ---
Date of Encounter: 05/24/17 Time of Encounter: 14:53 - Assessment and plan (1) COPD exacerbation Current Visit: Yes Status: Acute Assessment and plan: Continue bronchodilators. Will redo BiPAP qualification study overnight. Continue O2 supplementation and wean FiO2 as tolerated. (2) Essential hypertension Current Visit: Yes Status: Chronic Assessment and plan: Blood pressure elevated today. We we will add amlodipine to patient's regimen - Subjective Interval history: Patient is doing better. Unable To complete nocturnal BiPAP study overnight. Currently on 4 L nasal cannula. Saturating well. Denies any new chest pain. No palpitations. Shortness of breath is improving. - Constitutional Vitals: Temp Pulse Resp BP Pulse Ox 97.9 F 91 18 150/108 90 05/24/17 11:13 05/24/17 11:13 05/24/17 11:32 05/24/17 11:13 05/24/17 11:32 General appearance: Present: cooperative, mild distress, A&O X 3, obese, answers questions appropriately - Respiratory Respiratory exam: Present: prolonged expiratory phase. Absent: accessory muscle use, rales, rhonchi, wheezes - GI/Abdominal GI/Abdominal exam: Present: normal bowel sounds, soft, no peritoneal signs. Absent: distended, tenderness - Extremities Exam Extremities exam: Present: warm, radial pulses palpable and symetrical. Absent : calf tenderness, cyanotic, pedal edema - Neurological Exam Neurological exam: Present: alert, oriented X3, no focal deficits. Absent: facial droop, speech deficit - Skin Skin exam: Present: dry, intact Internal Medicine: Result - Labs CBC & Chem 7: 05/21/17 01:59 05/21/17 01:59 - ABG Interpretation ABG results: ABG ABG pH 7.42 pH Units (7.32-7.45) 05/23/17 12:12 ABG pCO2 53 mmHg (35-45) H 05/23/17 12:12 ABG pO2 53 mmHg (85-104) L 05/23/17 12:12 ABG O2 Saturation 88 % (95-98) L 05/23/17 12:12 PT/INR, D-dimer PT 12.1 Seconds (9.4-12.1) 05/20/17 19:20 Consult Discharge Plan - Plan Referrals: Cyrus Woo DO [Primary Care Provider] - 07/10/17 2:45 pm
[2017-05-24] MEDS: traZODone 50 MG TABLET PO SCH (20:27)
[2017-05-25] MEDS: Ipratropium/Albuterol Neb 3 ML IH SCH ×6 (03:51→23:14)
[2017-05-25] MEDS: *HR* Heparin 5,000 UNIT/ML VIAL SQ SCH ×2 (05:52→18:18)
[2017-05-25] MEDS: Budesonide/Formoterol 80/4.5 MDI IH SCH ×2 (08:00→19:43)
[2017-05-25] MEDS: Aspirin 81 MG TAB.CHEW PO SCH (09:22)
[2017-05-25] MEDS: levoFLOXacin 500 MG TABLET PO SCH (09:22)
[2017-05-25] MEDS: predniSONE 20 MG TABLET PO SCH (09:23)
[2017-05-25] MEDS: Furosemide 40 MG TABLET PO SCH ×2 (09:23→18:18)
[2017-05-25] MEDS: Pregabalin 50 MG CAPSULE PO SCH ×2 (09:23→20:39)
[2017-05-25] MEDS: Nystatin POWDER 30 GM BOTTLE TP SCH ×2 (12:47→20:40)
--- NOTE | 2017-05-25 14:13 | Discharge Summary ---
Date of Encounter: 05/25/17 Time of Encounter: 09:15 - Discharge Diagnosis (1) COPD exacerbation Priority: Primary Status: Acute (2) Essential hypertension Priority: Secondary Status: Chronic (3) Chronic respiratory failure with hypoxia and hypercapnia Priority: Secondary Status: Chronic - Discharge Medications Prescriptions: levoFLOXacin [Levaquin] 500 mg PO DAILY #5 tablet predniSONE [PredniSONE] 40 mg PO DAILY 8 Days Home Medications: Aspirin [Lo-Dose Aspirin EC] 81 mg PO DAILY 05/21/17 [History] Furosemide [Lasix] 40 mg PO DAILY 05/21/17 [History] HYDROcodone/Acet 5/325 mg [[place] 5-325 mg] 1 tab PO DAILY 05/21/17 [History] Lisinopril [Zestril] 5 mg PO DAILY 05/21/17 [History] Loratadine [Allergy Relief] 10 mg PO DAILY 05/21/17 [History] Oxybutynin [Ditropan] 5 mg PO BID 05/21/17 [History] Potassium Chloride [Klor-Con 10] 10 meq PO QAM 05/21/17 [History] Pregabalin [Lyrica] 50 mg PO BID 05/21/17 [History] Simvastatin [Zocor] 40 mg PO HS 05/21/17 [History] Trazodone HCl 150 mg PO HS 05/21/17 [History] cloNIDine HCl [CloNIDine HCl] 0.1 mg PO PRN PRN 05/21/17 [History] hydrOXYzine HCl [Hydroxyzine HCl] 50 mg PO TID PRN 05/21/17 [History] Budesonide/Formoterol 160/4.5 [Symbicort 160/4.5] 2 puff IH BIDR 05/23/17 [ History] Escitalopram [Lexapro] 10 mg PO DAILY 05/23/17 [History] Levalbuterol HCl [Xopenex] 1.25 mg IH Q12H 05/23/17 [History] Levalbuterol Tartrate [Xopenex Hfa] 2 puff IH Q6H PRN 05/23/17 [History] Omeprazole [PriLOSEC] 20 mg PO DAILY 05/23/17 [History] levoFLOXacin [Levaquin] 500 mg PO DAILY #5 tablet 05/25/17 [Rx] predniSONE [PredniSONE] 40 mg PO DAILY 8 Days 05/25/17 [Rx] Allergies/Adverse Reactions: Allergies gabapentin Allergy (Verified 05/22/16 00:36) Hives Date of admission: 05/21/17 11:09 Primary care physician: Natalie Hidalgo Discharging clinician: Asim Terry Anticipated date of discharge: 05/25/17 - Patient Status Disposition: Home Health Service Condition: Good Functional capacity at discharge: uses cane/walker Overall status at discharge: patient is progressing back to baseline - Discharge Instructions Instructions: Chronic Obstructive Pulmonary Disease (DC) Follow Up With: Cyrus Woo DO [Primary Care Provider] - 07/10/17 2:45 pm - Diet and Activity Activity: as per physical therapy Diet: low fat, low cholesterol, low salt diet Hospital course: Mr. Goins is a 67 year old male sent with a history of COPD and chronic respiratory failure on home oxygen who presented to the ER with shortness of breath and respiratory distress. He was diagnosed with acute respiratory failure related to COPD exacerbation and also had some fever. He was treated for this with O2 supplementation and IV antibiotics, IV steroids. His fever subsided quickly. Blood cultures were negative and sepsis was ruled out. Patient recovered slowly but still required high amounts of O2 supplementation via nasal cannula and BiPAP use intermittently. He was evaluated for home BiPAP use by nocturnal study and has qualified for home BiPAP use. This is currently being arranged for the patient. Once this is arranged, patient can be discharged and will complete treatment course for COPD short course of antibiotics and steroid taper. - Time Spent with Patient Total time spent providing and/or coordinating discharge services: Greater than 30 minutes (40 min) - Constitutional Vitals: Temp Pulse Resp BP Pulse Ox 97.9 F 91 18 159/85 90 05/25/17 11:15 05/25/17 11:15 05/25/17 11:15 05/25/17 11:15 05/25/17 11:15 General appearance: Present: cooperative, mild distress, A&O X 3, obese, answers questions appropriately - Neck Neck exam general surgery: Present: supple, trachea midline. Absent: lymphadenopathy - Respiratory Respiratory exam: Present: prolonged expiratory phase, wheezes. Absent: accessory muscle use, rales, rhonchi - Cardiovascular Cardiovascular exam: Present: RRR, +S1, +S2. Absent: diastolic murmur, gallop, rubs, systolic murmur - Extremities Exam Extremities exam: Present: warm, radial pulses palpable and symetrical. Absent : calf tenderness, cyanotic, pedal edema
--- NOTE | 2017-05-25 14:33 | Physician Discharge Referral ---
Home Health/Hosp Referral Info Transfer to: Home Health Provider in Charge Post Discharge: PCP - Diagnosis (1) COPD exacerbation Priority: Primary Status: Acute (2) Essential hypertension Priority: Secondary Status: Chronic (3) Chronic respiratory failure with hypoxia and hypercapnia Priority: Secondary Status: Chronic - Respiratory Orders Oxygen / L per min (4-5) Smoking Cessation: Smoking cessation has been advised. For more information, call the [place] Tobacco Quit Line at 3-609-KXPI-NOW. - Diet/Nutrition Diet/Nutrition Orders: Cardiac - Activity Activity Orders: Walker - Services Needed Following services are medically necessary services: Nursing, Home Health Aide, Physical Therapy, Occupational Therapy - Transfer Medications Prescriptions: levoFLOXacin [Levaquin] 500 mg PO DAILY #5 tablet Home Medications: Aspirin [Lo-Dose Aspirin EC] 81 mg PO DAILY 05/21/17 [History] Furosemide [Lasix] 40 mg PO DAILY 05/21/17 [History] HYDROcodone/Acet 5/325 mg [[place] 5-325 mg] 1 tab PO DAILY 05/21/17 [History] Lisinopril [Zestril] 5 mg PO DAILY 05/21/17 [History] Loratadine [Allergy Relief] 10 mg PO DAILY 05/21/17 [History] Oxybutynin [Ditropan] 5 mg PO BID 05/21/17 [History] Potassium Chloride [Klor-Con 10] 10 meq PO QAM 05/21/17 [History] Pregabalin [Lyrica] 50 mg PO BID 05/21/17 [History] Simvastatin [Zocor] 40 mg PO HS 05/21/17 [History] Trazodone HCl 150 mg PO HS 05/21/17 [History] cloNIDine HCl [CloNIDine HCl] 0.1 mg PO PRN PRN 05/21/17 [History] hydrOXYzine HCl [Hydroxyzine HCl] 50 mg PO TID PRN 05/21/17 [History] Budesonide/Formoterol 160/4.5 [Symbicort 160/4.5] 2 puff IH BIDR 05/23/17 [ History] Escitalopram [Lexapro] 10 mg PO DAILY 05/23/17 [History] Levalbuterol HCl [Xopenex] 1.25 mg IH Q12H 05/23/17 [History] Levalbuterol Tartrate [Xopenex Hfa] 2 puff IH Q6H PRN 05/23/17 [History] Omeprazole [PriLOSEC] 20 mg PO DAILY 05/23/17 [History] levoFLOXacin [Levaquin] 500 mg PO DAILY #5 tablet 05/25/17 [Rx] Allergies/Adverse Reactions: Allergies gabapentin Allergy (Verified 05/22/16 00:36) Hives Certification: Further, I certify that my clinical findings support that this patient is homebound (i.e. absences from home require considerable and taxing effort and are for medical reasons or evangelical services or infrequently or short duration when for other reasons) because: Homebound Reason: Patient requires assistance of a person or device to safely leave home, Severity of cardiac or pulmonary status limits activity tolerance Attestation: My signature below is to certify that this patient is under my care and that I, or nurse practitioner, or a physician's assistant manager quality management working with me, has a face-to -face encounter with this patient.
[2017-05-25] MEDS: *HR* HYDROcodone/Acet 5/325 mg TABLET PO SCH (20:39)
[2017-05-25] MEDS: traZODone 50 MG TABLET PO SCH (20:40)
[2017-05-26] MEDS: Ipratropium/Albuterol Neb 3 ML IH SCH ×6 (03:33→23:42)
[2017-05-26] MEDS: *HR* Heparin 5,000 UNIT/ML VIAL SQ SCH ×2 (06:02→17:29)
[2017-05-26] MEDS: Budesonide/Formoterol 80/4.5 MDI IH SCH ×2 (07:54→20:35)
[2017-05-26 10:00] LABS: BUN/Creatinine Ratio 29 (6-26); Blood Urea Nitrogen 31 mg/dL (8-26); Calcium 8.9 mg/dL (8.6-10.8); Carbon Dioxide 29 mEq/L (19-29); Chloride 101 mEq/L (98-109); Glucose 121 mg/dL (70-99); Osmolality,Calculated 298 (280-300); Potassium 3.5 mEq/L (3.5-4.5); Sodium 140 mEq/L (136-145); eGFR For African Americans > 60 (> 60); eGFR For Non-African Americans > 60 (> 60)
[2017-05-26] MEDS: *HR* HYDROcodone/Acet 5/325 mg TABLET PO SCH ×2 (10:26→20:54)
[2017-05-26] MEDS: Aspirin 81 MG TAB.CHEW PO SCH (10:26)
[2017-05-26] MEDS: levoFLOXacin 500 MG TABLET PO SCH (10:26)
[2017-05-26] MEDS: Furosemide 40 MG TABLET PO SCH (10:26)
[2017-05-26] MEDS: Pregabalin 50 MG CAPSULE PO SCH ×2 (10:26→20:54)
[2017-05-26] MEDS: predniSONE 20 MG TABLET PO SCH (10:27)
[2017-05-26] MEDS: Nystatin POWDER 30 GM BOTTLE TP SCH ×2 (13:24→20:55)
--- NOTE | 2017-05-26 15:19 | Internal Med Progress Note ---
Date of Encounter: 05/26/17 Time of Encounter: 15:15 - Assessment and plan (1) COPD exacerbation Current Visit: Yes Status: Acute Assessment and plan: Patient is clinically getting better. Has qualified for home BiPAP use due to chronic respiratory failure and COPD. We will make arrangements for patient to receive this at the time of discharge. Currently awaiting evaluation by physical therapy to see if he would need skilled rehabilitation. (2) Essential hypertension Current Visit: Yes Status: Chronic Assessment and plan: Blood pressure is elevated today. Patient is on clonidine and lisinopril. Increase lisinopril dosage to 20 mg by mouth daily (3) Chronic respiratory failure with hypoxia and hypercapnia Current Visit: Yes Status: Chronic Assessment and plan: Continue to supplementation. BiPAP use as needed. - Subjective Interval history: Patient feels his shortness of breath is improving. However he has not been ambulating much and had trouble with his right foot when he stood up the other day. He denies any weakness in his lower extremities. He has been able to sit up in his chair without any issues. - Constitutional Vitals: Temp Pulse Resp BP Pulse Ox 98.3 F 93 20 147/102 88 05/26/17 15:10 05/26/17 15:10 05/26/17 15:10 05/26/17 15:10 05/26/17 15:10 General appearance: Present: cooperative, mild distress, A&O X 3, obese, answers questions appropriately - Respiratory Respiratory exam: Present: prolonged expiratory phase, wheezes (Mild expiratory) . Absent: accessory muscle use, rales, rhonchi - GI/Abdominal GI/Abdominal exam: Present: normal bowel sounds, soft, no peritoneal signs. Absent: distended, tenderness - Extremities Exam Extremities exam: Present: warm, radial pulses palpable and symetrical. Absent : calf tenderness, cyanotic, pedal edema - Neurological Exam Neurological exam: Present: CN II-XII intact, oriented X3, no focal deficits. Absent: facial droop, speech deficit Internal Medicine: Result - Labs CBC & Chem 7: 05/21/17 01:59 05/26/17 09:10 Labs: BMP 05/26/17 09:10 Sodium 140 Potassium 3.5 Chloride 101 Carbon Dioxide 29 BUN 31 H Creatinine 1.06 Glucose 121 H Calcium 8.9 - ABG Interpretation ABG results: ABG ABG pH 7.42 pH Units (7.32-7.45) 05/23/17 12:12 ABG pCO2 53 mmHg (35-45) H 05/23/17 12:12 ABG pO2 53 mmHg (85-104) L 05/23/17 12:12 ABG O2 Saturation 88 % (95-98) L 05/23/17 12:12 PT/INR, D-dimer PT 12.1 Seconds (9.4-12.1) 05/20/17 19:20 Consult Discharge Plan - Plan Instructions: Prednisone (By mouth), Levofloxacin (By mouth), Chronic Obstructive Pulmonary Disease (DC), Sepsis (DC), Chronic Hypertension (DC) Referrals: Cyrus Woo DO [Primary Care Provider] - 07/10/17 2:45 pm Prescriptions: levoFLOXacin [Levaquin] 500 mg PO DAILY #5 tablet predniSONE [PredniSONE] 40 mg PO DAILY 8 Days
[2017-05-26] MEDS: traZODone 50 MG TABLET PO SCH (20:54)
[2017-05-27] MEDS: Ipratropium/Albuterol Neb 3 ML IH SCH ×4 (03:51→16:02)
[2017-05-27] MEDS: *HR* Heparin 5,000 UNIT/ML VIAL SQ SCH (06:26)
[2017-05-27] MEDS: Aspirin 81 MG TAB.CHEW PO SCH (08:46)
[2017-05-27] MEDS: levoFLOXacin 500 MG TABLET PO SCH (08:46)
[2017-05-27] MEDS: *HR* HYDROcodone/Acet 5/325 mg TABLET PO SCH (08:47)
[2017-05-27] MEDS: predniSONE 20 MG TABLET PO SCH (08:47)
[2017-05-27] MEDS: Pregabalin 50 MG CAPSULE PO SCH (08:48)
[2017-05-27] MEDS: Nystatin POWDER 30 GM BOTTLE TP SCH (08:48)
[2017-05-27] MEDS ORDERED: Furosemide 40 MG TABLET PO SCH (09:00)
--- NOTE | 2017-05-27 09:09 | Internal Med Progress Note ---
Date of Encounter: 05/27/17 Time of Encounter: 09:06 - Assessment and plan (1) COPD exacerbation Current Visit: Yes Status: Acute Assessment and plan: Patient is clinically better. Patient has been evaluated by physical therapy and recommended to have rehabilitation placement. Patient states that he feels back to baseline. However, he is requiring 6 L of oxygen in contrast to 4 L of oxygen which he uses at home. He will be continued on Levaquin and prednisone. Gradual taper of prednisone as an outpatient. Okay to discharge to rehabilitation when bed available. (2) Respiratory failure Current Visit: Yes Status: Chronic Assessment and plan: Patient uses 4 L of oxygen at home. He is currently requiring 6 L. Acute worsening of respiratory failure due to COPD exacerbation. Qualified for home BiPAP. Qualifiers: Chronicity: acute on chronic Respiratory failure complication: hypoxia and hypercapnia Qualified Code(s): J96.21 - Acute and chronic respiratory failure with hypoxia; J96.22 - Acute and chronic respiratory failure with hypercapnia (3) Essential hypertension Current Visit: Yes Status: Chronic Assessment and plan: Control blood pressure. Can you current medications. - Subjective Interval history: Patient states that his breathing has improved and he states that he is back to his baseline. He states that he uses 4 L of oxygen at home around the clock. He lives at home with his . He states that he sees a professional application designer at the [place]. He reports some dry cough but denies any sputum production. He denies any chest pain or feeling lightheaded with activity. He has been evaluated by physical therapy and recommended to have short-term rehabilitation placement. - Constitutional Vitals: Temp Pulse Resp BP Pulse Ox 98.1 F 82 18 146/107 95 05/26/17 19:41 05/27/17 05:28 05/27/17 05:28 05/27/17 05:28 05/27/17 05:28 General appearance: Present: cooperative, A&O X 3, no acute distress, obese, answers questions appropriately Exam: Gen.: Lying in bed. No acute distress. Chest: Reduced breath sounds bilaterally CVS: First and second heart sounds present. No murmurs, rubs or gallops. Abdomen: Soft, nontender, nondistended. Bowel sounds present. No hepatosplenomegaly. Internal Medicine: Result - Labs CBC & Chem 7: 05/21/17 01:59 05/26/17 09:10 Labs: BMP 05/26/17 09:10 Sodium 140 Potassium 3.5 Chloride 101 Carbon Dioxide 29 BUN 31 H Creatinine 1.06 Glucose 121 H Calcium 8.9 - ABG Interpretation ABG results: ABG ABG pH 7.42 pH Units (7.32-7.45) 05/23/17 12:12 ABG pCO2 53 mmHg (35-45) H 05/23/17 12:12 ABG pO2 53 mmHg (85-104) L 05/23/17 12:12 ABG O2 Saturation 88 % (95-98) L 05/23/17 12:12 PT/INR, D-dimer PT 12.1 Seconds (9.4-12.1) 05/20/17 19:20 Consult Discharge Plan - Plan Instructions: Prednisone (By mouth), Levofloxacin (By mouth), Chronic Obstructive Pulmonary Disease (DC), Sepsis (DC), Chronic Hypertension (DC) Referrals: Cyrus Woo DO [Primary Care Provider] - 07/10/17 2:45 pm Prescriptions: levoFLOXacin [Levaquin] 500 mg PO DAILY #5 tablet predniSONE [PredniSONE] 40 mg PO DAILY 8 Days
--- NOTE | 2017-05-27 09:15 | Physician Discharge Referral ---
ExtendedCare Referral Info Transfer To: SNF/ECF Provider in Charge: Dr. Arturo Ace Provider in Charge after Transfer: PCP Institutional Level of Care: Skilled - Diagnosis (1) COPD exacerbation Priority: Primary Status: Acute (2) Respiratory failure Priority: Secondary Status: Chronic (3) Essential hypertension Priority: Secondary Status: Chronic Expected Duration of Placement: 2 weeks Prognosis: Fair Aware of Diagnosis: Patient - Transfer Medications Prescriptions: levoFLOXacin [Levaquin] 500 mg PO DAILY #5 tablet predniSONE [PredniSONE] 10 mg PO AD #30 tablet Home Medications: Aspirin [Lo-Dose Aspirin EC] 81 mg PO DAILY 05/21/17 [History] Furosemide [Lasix] 40 mg PO DAILY 05/21/17 [History] HYDROcodone/Acet 5/325 mg [[place] 5-325 mg] 1 tab PO DAILY 05/21/17 [History] Loratadine [Allergy Relief] 10 mg PO DAILY 05/21/17 [History] Oxybutynin [Ditropan] 5 mg PO BID 05/21/17 [History] Potassium Chloride [Klor-Con 10] 10 meq PO QAM 05/21/17 [History] Pregabalin [Lyrica] 50 mg PO BID 05/21/17 [History] Simvastatin [Zocor] 40 mg PO HS 05/21/17 [History] Trazodone HCl 150 mg PO HS 05/21/17 [History] cloNIDine HCl [CloNIDine HCl] 0.1 mg PO PRN PRN 05/21/17 [History] hydrOXYzine HCl [Hydroxyzine HCl] 50 mg PO TID PRN 05/21/17 [History] Budesonide/Formoterol 160/4.5 [Symbicort 160/4.5] 2 puff IH BIDR 05/23/17 [ History] Escitalopram [Lexapro] 10 mg PO DAILY 05/23/17 [History] Levalbuterol HCl [Xopenex] 1.25 mg IH Q12H 05/23/17 [History] Levalbuterol Tartrate [Xopenex Hfa] 2 puff IH Q6H PRN 05/23/17 [History] Omeprazole [PriLOSEC] 20 mg PO DAILY 05/23/17 [History] levoFLOXacin [Levaquin] 500 mg PO DAILY #5 tablet 05/25/17 [Rx] Lisinopril [Zestril] 20 mg PO DAILY #0 tablet 05/26/17 [Rx] predniSONE [PredniSONE] 10 mg PO AD #30 tablet 05/27/17 [Rx] Allergies/Adverse Reactions: Allergies gabapentin Allergy (Verified 05/22/16 00:36) Hives - Respiratory Orders Oxygen / L per min (6L/min; wean to 4L/min as tolerated) Smoking Cessation: Smoking cessation has been advised. For more information, call the [place] Tobacco Quit Line at 0-328-UYEA-NOW. - Ancillary Orders May use pressure relief devices daily prn, May go on LUIS w/family/respon alliance party w /meds at nurse discretion PRN - Advance Directives Power of Carpenters: Yes ( and daughter) Code Status: DNR-Arrest - Mobility Orders Ambulate - Rehabiliation Orders Rehab Potential: Good Rehab Orders: Sternal Precautions, ROM Exercises, Evaluation for Physical Therapy, Evaluation for Occupational Therapy - Treatments Skin tear care topically daily PRN per policy, May check for fecal impaction rectally daily PRN - Diet Orders No Added Salt (SWATI) CERTIFICATION: I certify that the transfer of the above named patient to an Extended Care Facility is necessary for the continuing treatment of the diagnosis listed. The above information is true and accurate reflection of patient's current condition. Confidential - Redisclosure prohibited without a patient's written consent.
[2017-05-27] MEDS: Budesonide/Formoterol 80/4.5 MDI IH SCH (11:49)
[2017-05-27 15:59] VITALS: BP 130/85
== END 2017-05-27 19:38 | disposition home health service (06) | DRG 190 ==
LOC: EMEROO 19:09 → 2NENU 19:09 → SUATTDRO 05-21 11:09
PROVIDERS: ADMIT Internal Medicine; ATTEND Internal Medicine Sleep Medicine